=== PATIENT | male | born 1995 | race Caucasian/White ===

== ENCOUNTER 2019-02-16 16:55 | Emergency (ER) | payer MEDICAID ==
[~2019-02-16] VITALS: Ht 167.6 cm; Wt 65.8 kg
--- NOTE | 2019-02-16 16:55 | NUR ---
[facility], transferred to chair E. RN evaluating patient.
[2019-02-16 17:20] VITALS: BP 106/76
--- NOTE | 2019-02-16 17:30 | NUR ---
REENA PRATER; Gislea GONZALEZ [facility]5 C/O ANKLE, SHOULDER INJURY X 2 WEEKS AGO.
--- NOTE | 2019-02-16 17:52 | NUR ---
Dr. Nagel evaluating patient.
[2019-02-16 18:10] VITALS: BP 106/76
--- NOTE | 2019-02-16 18:10 | NUR ---
PATIENT BIB [facility] [facility]. PATIENT EXAMINED BY DR. ROSAS. PATIENT MEDICALLY CLEARED AND RELEASED IN CUSTODY IN STABLE CONDITION. ORIGINAL PRE-BOOK FORM GIVEN TO OFFICER.
== END 2019-02-16 18:10 | disposition home or self-care (01) ==
LOC: MED 16:55
DX: M25.579 Pain in unspecified ankle and joints of unspecified foot (principal); M25.519 Pain in unspecified shoulder; Z02.89 Encounter for other administrative examinations
CPT/HCPCS: 99283